=== PATIENT | male | born 1990 | race Caucasian/White ===

== ENCOUNTER 2021-01-04 16:43 | Emergency (ER) | payer OTHER, SELFPAY ==
[2021-01-04 16:59] VITALS: BP 109/79; PULSE 68; RESP 18; TEMP 36.7; O2SAT 98
--- NOTE | 2021-01-04 17:09 | ED.GENADULT ---
HPI - General Adult General Chief complaint: Skin/Abscess/Foreign Body Stated complaint: poison frannie Source: patient Mode of arrival: ambulatory Limitations: no limitations History of Present Illness HPI narrative: 30 y/o male. PMH includes: None reported. Presents to [facility] today with acute complaints of suspected poison frannie located to bilateral lower extremities and left elbow. Pt reports to have been cutting weeds by timber at his home 1 week ago, and has since developed itching and rash to the aforementioned areas. No fevers, myalgias. No facial or oral involvement. No cough, dyspnea, or wheezing. He reports to have been using Calamine lotion at home with subtherapeutic relief. He is without additional acute complaints of illness upon exam. Related Data Allergies Allergy/AdvReac Type Severity Reaction Status Date / Time No Known Allergies Allergy Verified 01/04/21 17:04 Review of Systems Review of Systems: Narrative: CONSTITUTIONAL: Denies fever, chills, sweats. EYES: Denies visual changes, redness, discharge. ENT: Denies rhinorrhea, congestion, sore throat, otalgia. CARDIOVASCULAR: Denies chest pain, palpitations, edema. RESPIRATORY: Denies dyspnea, wheezing, cough GASTROINTESTINAL: Denies abdominal pain, nausea, vomiting, diarrhea. GENITOURINARY: Denies dysuria, hematuria, abnormal discharge SKIN: Positive rash & itching to legs and left elbow. MUSCULOSKELETAL: Denies acute back pain, joint pain, or myalgia. NEUROLOGIC: Denies numbness, or focal weakness. PSYCHIATRIC: Denies anxiety or depression. All systems reviewed & are unremarkable except as noted in HPI and below PMFSH Past Medical History Medical History Healthy adult Surgical History Surgical History S/P hernia surgery Family History Family History Father Family history of hypercholesterolemia Hypertension Grandparent Family history of premature coronary heart disease Cerebrovascular accident Family history of coronary artery disease Family history of seizure disorder Mother Patient's mother is in good health Sibling Patient's sister is in good health Patient's brother is in good health Social History Social History Smoking status: Never smoker Alcohol intake: current Substance use: never Gender identity (if verbalized by the patient): Male Exam Narrative: Exam Narrative: GENERAL: This is a well-nourished, well-developed patient, in no apparent distress. HEAD: normocephalic, atraumatic. EYES: Sclera clear/white. EARS: External ears normal. NOSE: External nose normal with no obvious nasal discharge. THROAT: Mucous membranes moist, posterior pharynx clear. NECK: Neck supple, non-tender without lymphadenopathy, masses or thyromegaly. CARDIOVASCULAR: Regular rate and rhythm without murmurs, gallops, or rubs. RESPIRATORY: Clear to auscultation. Breath sounds equal bilaterally. GASTROINTESTINAL: Abdomen soft, non-tender, nondistended. SKIN: With erythematous and mildly raised scattered rash located to bilateral lower shins and left elbow. There are limited scattered fluid-filled blisters, oozing serosanguineous discharge. Some lesions with honey colored crustation. No deep tissue wounds or fluctuance. NEURO: no obvious focal neurologic abnormalities. Steady gait. Course Vital Signs Vital signs: Vital Signs Temperature 36.7 C 01/04/21 16:59 Pulse Rate 68 01/04/21 16:59 Respiratory Rate 18 01/04/21 16:59 Blood Pressure 109/79 01/04/21 16:59 Pulse Oximetry 98 01/04/21 16:59 Temperature 36.7 C 01/04/21 16:59 Pulse Rate 68 01/04/21 16:59 Respiratory Rate 18 01/04/21 16:59 Blood Pressure 109/79 01/04/21 16:59 Pulse Oximetry 98 01/04/21 16:59 Me
[2021-01-04] MEDS: methylPREDNISolone ACETATE 40 MG/ML VIAL IM (17:21)
== END 2021-01-04 17:25 | disposition home or self-care (01) ==
PROVIDERS: Emergency Provider Nurse Practitioner Adult Health; PCP Family Medicine
DX: L23.7 Allergic contact dermatitis due to plants, except food (principal); L24.9 Irritant contact dermatitis, unspecified cause
CPT/HCPCS: 96372; 99213; G0463; J1030

== ENCOUNTER → 2022-09-05 12:23 | Outpatient (CLI) | payer OTHER, SELFPAY ==
--- NOTE | ~2022-09-05 | MR_ITS ---
EXAMINATION: MR brain/brain stem wo con DATE: 09/05/2022 12:51 INDICATION: New headache. TECHNIQUE: Magnetic resonance imaging (MRI) of the brain and brainstem was performed without intraven ous contrast. COMPARISON: None. FINDINGS: There is no intracranial hemorrhage, acute infarction, or abnormal intracranial mass lesion . The ventricles are normal in size. There is mucosal thickening in the paranasal sinuses. The orbits are normal. The mastoid air cells are normal. IMPRESSION: 1. Normal brain. Reviewed, dictated and finalized at location A. ING SUPERINTENDENT IMPRESSION: 1. Normal brain.
== END ==
PROVIDERS: PCP Family Medicine; Visit Provider Physician Assistant Medical
DX: R51.9 Headache, unspecified (principal)
CPT/HCPCS: 70551

== ENCOUNTER → 2023-08-16 10:12 | Outpatient (CLI) | payer OTHER, SELFPAY ==
--- NOTE | ~2023-08-16 | MR_ITS ---
MRI of the left shoulder Technique: Axial proton-density fat-sat images, coronal proton density fat-sat and T2 fat-sat images, and sagittal T1-weighted and T2 fat-sat images were acquired. Clinical History: Pain Findings: There is [id number] AC joint degenerative change, bony productive change at the dista l clavicle. No significant subacromial spur evident. Coracoclavicular, coracoacromial, and coracohume ral ligaments appear intact. Supraspinatus and infraspinatus tendons are intact, without partial or full-thickness tear. There is probable focal calcific density at the distal supraspinatus tendon measuring approximately 5 mm in si ze, compatible with calcific tendinitis. Subscapularis tendon is intact, without partial or full-thic kness tear. Tendon of long head of the biceps is intact. No labral tear evident. Inferior glenohumeral ligament is intact, possibly mildly thickened. No effusion or degenerative rice ge of the glenohumeral joint. No fluid distention of the subacromial/subdeltoid bursa. No muscle atro phy or edema. Impression: Calcific tendinitis of the distal supraspinatus tendon, as detailed above. [id number] AC joint degenerative change. Reviewed, dictated and finalized at location . CONTROL SPECIALIST Impression: Calcific tendinitis of the distal supraspinatus tendon, as detailed above. [id number] AC joint degenerative change.
== END ==
PROVIDERS: PCP Nurse Practitioner Family; Visit Provider Nurse Practitioner Family
DX: M75.32 Calcific tendinitis of left shoulder (principal); M19.012 Primary osteoarthritis, left shoulder
CPT/HCPCS: 73221

== ENCOUNTER 2025-04-04 10:05 | Emergency (ER) | payer OTHER, SELFPAY ==
--- NOTE | ~2025-04-04 | XR_ITS ---
EXAMINATION: XR chest 2V, 04/04/2025 10:40 CDT HISTORY: cough for 6 days, SOB, sweats 2 days COMPARISON: No comparisons available. Technique: 2 views obtained. Findings: Scattered infiltrates most marked left upper lobe. No pneumothorax. Heart is normal size. Mediastinal and hilar contours are within normal limits. Bony thorax no acute abnormality. Impression: Bilateral pneumonia Reviewed, dictated and finalized at location A. Impression: Bilateral pneumonia
[2025-04-04 10:15] VITALS: BP 120/78; PULSE 71; RESP 16; TEMP 36.6; O2SAT 100
[2025-04-04 10:34] LABS: EDCOVIDSCREEN Negative (Negative)
--- NOTE | 2025-04-04 10:37 | ED_ITS ---
HPI - URI/Sore Throat General Chief Complaint: Upper Respiratory Infection Stated Complaint: Cough / fever Time Seen by Provider: 04/04/25 10:37 Source: patient Mode of arrival: ambulatory Limitations: no limitations History of Present Illness HPI Narrative: 35 yo M presents with c/o cough, chest congestion for 5 days. For the past 2 days as had worsening of cough, fatigue, bodyaches, fever and sweating at night. Denies shortness of breath or chest pain. Taking ibuprofen to treat body aches which she states is helping. Patient states he feels like he is getting worse instead of better. All systems reviewed and negative except as noted above. Related Data Allergies Allergy/AdvReac Type Severity Reaction Status Date / Time No Known Allergies Allergy Verified 04/04/25 10:24 [facility] Past Medical History Medical History (Updated 04/04/25 @ 11:09 by Gabriela Velasco NP) Pain in glenohumeral joint Rotator cuff tear Calcific tendonitis of left shoulder region Left shoulder pain Right shoulder pain Healthy adult Surgical History Surgical History Hx of vasectomy S/P hernia surgery Family History Family History Father Family history of hypercholesterolemia Hypertension Grandparent Family history of premature coronary heart disease Cerebrovascular accident Family history of coronary artery disease Family history of seizure disorder Mother Patient's mother is in good health Sibling Patient's sister is in good health Patient's brother is in good health Social History Social History Smoking status: Never smoker Second hand tobacco smoke exposure: No Alcohol intake: current Alcohol use details: social Substance use: never Substance use type: does not use Lack of Transportation: No Lack of Food: Never True Current Housing: I Have Housing Concerned About Future Housing: No Difficulty Paying Gas/Electric Bills: No Difficulty Paying for Meds: No Currently Unemployed: No Education: Master's Degree or Higher Difficulty w/ Childcare or Family Care: No Living arrangements: with family Gender identity (if verbalized by the patient): Male Sexual Orientation (if Verbalized by the Patient): Straight or Heterosexual Spiritual care concerns: No Agree to blood products: Yes Comments At time of signature, agree with nursing past medical, surgical, social and family history. There is no relevant family history pertinent to the presenting complaint. Exam Narrative: GENERAL: This is a well-nourished, well-developed patient, Patient is pale but no acute distress HEAD: normocephalic, atraumatic. EYES: PERRL. Sclera clear/white. Vision is grossly intact. EARS: External ears normal, auditory canals clear and without drainage, TMs normal without perforation. Hearing grossly intact. NOSE: External nose normal with no obvious nasal discharge, nares without redness, no rhinorrhea. THROAT: Mucous membranes moist, posterior pharynx clear. NECK: Neck supple, non-tender without lymphadenopathy, masses or thyromegaly. CARDIOVASCULAR: Regular rate and rhythm without murmurs, gallops, or rubs. RESPIRATORY: Clear to auscultation. Breath sounds equal bilaterally. No wheezes, rales, or rhonchi. SKIN: warm, Dry, intact with no suspicious lesions or rash, good texture and turgor. NEURO: awake, alert, and oriented to person, place and time. There were no obvious focal neurologic abnormalities. EXTREMITIES: No joint tenderness, effusion, or edema noted. Course Course Level of Care: Express Care Visit Vital Signs Vital signs: Vital Signs Temperature 36.6 C 04/04/25 10:15 Pulse Rate 71 04/04/25 10:15 Respiratory Rate 16 04/04/25 10:15 Blood Pressure 120/78 04/04/25 10:15 Pulse Oximetry 100 04/04/25 10:15 Oxygen Delivery Room Air 04/04/25 10:15 Temperature 36.6 C 04/04/25 10:15 Pulse Rate 71 04/04/25 10:15 Respiratory Rate 16 04/04/25 10:15 Blood Pressure 120/78 04/04/25 10:15 Pulse Oximetry 100 04/04/25 10:15 Oxygen Delivery Room Air 04/04/25 10:15 reviewed MDM - URI/Sore Throat MDM Narrative Medical decision making narrative: discussed x-ray results with patient. Patient has bilateral pneumonia. Will treat with doxycycline. Patient is alert, nontoxic. Oxygen saturation 100% room air. No respiratory distress. Okay for outpatient therapy. Will follow up with his primary care physician as needed. Differential Diagnosis Differential diagnosis: Likely upper respiratory infection, sinusitis, viral infection, bronchitis and other ( Pneumonia) Lab Data Labs: Lab Results 04/04/25 Range/Units 10:30 POC SARS CoV-2 Ag Negative (Negative) Imaging Data My impression: agree with radiologist Radiologist's impression: EXAMINATION: XR chest 2V, 04/04/2025 10:40 CDT HISTORY: cough for 6 days, SOB, sweats 2 days COMPARISON: No comparisons available. Technique: 2 views obtained. Findings: Scattered infiltrates most marked left upper lobe. No pneumothorax. Heart is normal size. Mediastinal and hilar contours are within normal limits. Bony thorax no acute abnormality. Impression: Bilateral pneumonia Discharge Plan Discharge Clinical Impression: Pneumonia Patient Disposition: Home Condition: Stable Instructions: Antibiotic Form, Pneumonia (ED) Additional Instructions: take antibiotic as prescribed until gone. Take Tylenol or ibuprofen every 6-8 hours as needed for fever and body aches. Drink at least 64 oz water a day. Follow-up with your primary care physician if symptoms are not improving. Patient Language: Syriac Prescriptions: New doxycycline hyclate 100 mg tablet 100 mg PO BID 7 Days Qty: 14 0RF Follow-up/Referrals: Amy Madera MD [Primary Care Provider, [facility]] Time of Disposition: 11:10
--- OUTSIDE RECORDS SUMMARY | 2025-04-04 11:21 | XMS_ITS | Clinical Summary ---
Author Organization [facility] Address [address] [place] [address] Phone Care Team Providers Care Container Coordinator Name Role Phone Amy Madera MD Primary Care Provider [phone] Allergies No known active allergies Medications No known medications Active Problems No known active problems Social History Tobacco Use Types Packs/Day Years Used Date Smoking Tobacco: Never Smokeless Tobacco: Never Sex and Gender Information Value Date Recorded Sex Assigned at Not on file Legal Sex Male 7:50 AM CINDER BLOCK [employer]ON Gender Identity Not on file Sexual Orientation Not on file Last Filed Vital Signs Vital Sign Reading Time Taken Comments Blood Pressure 112/82 06/09/2020 8:02 AM CINDER BLOCK MASON Pulse 85 06/09/2020 8:02 AM CINDER BLOCK MASON Temperature 36.6 C (97.8 F) 06/09/2020 8:02 AM CINDER BLOCK MASON Respiratory Rate - - Oxygen Saturation 98% 06/09/2020 8:02 AM CINDER BLOCK [employer]ON Inhaled Oxygen Concentration - - Weight - - Height - - Body Mass Index - - Plan of Treatment Health Maintenance Due Date Last Done Comments Hepatitis C Virus (HCV) Screening 1988 Hepatitis B Immunization (1 of 3 - 19+ 3-dose series) 01/13/2007 Human Papillomavirus (HPV) Immunization (1 - 3-dose SCDM series) 01/13/2015 Influenza Immunization (#1) 2025 03/13/2016 SARS-COV-2 Immunization (2 - season) 2025 05/14/2021 Respiratory Syncytial Virus (RSV) Immunization (Adult) (1 - 1-dose 75+ series) 01/13/2063 DTaP/Tdap/Td Immunization Discontinued 03/13/2016 TdaP Immunization Completed 03/13/2016 Meningococcal Immunization (ACWY) Aged Out No longer eligible based on patient's age to complete this topic Pneumococcal Immunization Combined Aged Out No longer eligible based on patient's age to complete this topic Rotavirus Immunization Aged Out No lo nger eligible based on patient's age to complete this topic Care Teams Container Coordinator Relationship Specialty Start Date End Date Amy Madera MD [address] [place] [address] PCP - General Family Medicine 06/09/20
--- OUTSIDE RECORDS SUMMARY | 2025-04-04 11:21 | XMS_ITS | Clinical Summary ---
Author Organization [facility] Address [address] [place] [address] Phone Care Team Providers Care Microsoft Solutions Architect Name Role Phone Unavailable Primary Care Provider Unavailabl e Allergies Active Allergy Reactions Criticality Noted Date Comments Amoxicillin Hives High 11/06/2012 Clindamycin Hives High 11/06/2012 Medications No known medications Active Problems No known active problems Immunizations Immunization Administration Dates Next Due (ADACEL/BOOSTRIX)(10 YR UP) TDAP VACCINE, 0.5ML, IM 11/06/2012 Family History Medical History Relation Name Comments High Cholesterol Father Hypertension Father Healthy Mother Heart Disease Paternal Grandfather Colon Cancer Neg Hx Diabetes Neg Hx Relation Name Status Comments Father Alive Mother Alive Paternal Grandfather Alive Social History Tobacco Use Types Packs/Day Years Used Date Smoking Tobacco: Never Smokeless Tobacco: Never Alcohol Use Standard Drinks/Week Comments Yes 0 (1 standard drink = 0.6 oz pur e alcohol) socially Sex and Gender Information Value Date Recorded Sex Assigned at Not on file Legal Sex Male 10:57 AM CDT Gender Identity Not on file Sexual Orientation Not on file Occupation Industry Job Start Date Job End Date Not on file Not on file Not on file Not on file Last Filed Vital Signs Vital Sign Reading Time Taken Comments Blood Pressure 120/70 06/04/2013 11:19 AM DIRECTOR SURGICAL Pulse 76 06/04/2013 11:19 AM DIRECTOR SURGICAL Temperature 36.8 C (98.2 F) 06/04/2013 11:19 AM DIRECTOR SURGICAL Respiratory Rate - - Oxygen Saturation 99% 06/04/2013 11:19 AM DIRECTOR SURGICAL Inhaled Oxygen Concentration - - Weight 87.5 kg (193 lb) 06/04/2013 11:19 AM DIRECTOR SURGICAL Height 175.3 cm (5' 9) 06/04/2013 11:19 AM DIRECTOR SURGICAL Body Mass Index 28.5 06/04/2013 11:19 AM DIRECTOR SURGICAL Plan of Treatment Health Maintenance Due Date Last Done Comments HEPATITIS B VACCINES (1 of 3 - 19+ 3-dose series) 12/20 HPV VACCINES (1 - 3-dose SCDM series) 01/13/2015 DTAP/TDAP/TD VACCINES (2 - Td or Tdap) 11/06/2022 INFLUENZA VACCINE (#1) 2025 [facility]
== END 2025-04-04 11:11 | disposition home or self-care (01) ==
PROVIDERS: Emergency Provider Nurse Practitioner Family; PCP Family Medicine
DX: J18.9 Pneumonia, unspecified organism (principal); Z20.822 Contact with and (suspected) exposure to COVID-19
CPT/HCPCS: 71046; 87426; 99213; G0463

== ENCOUNTER 2025-04-27 11:11 | Outpatient (CLI) | payer OTHER, SELFPAY ==
--- NOTE | ~2025-04-27 | XR_ITS ---
Examination: XR chest 2V Clinical History: Pneumonia, unspecified organism; COUGH x1 MONTH Comparison: 04/04/2025 Technique: PA and Lateral Findings: Cardiomediastinal silhouette normal size and configuration. Lungs clear. No acute bony abnormality. IMPRESSION: 1. No acute cardiopulmonary findings. Reviewed, dictated and finalized at location R.
== END 2025-04-27 11:12 | disposition home or self-care (01) ==
DX: J18.9 Pneumonia, unspecified organism (principal)
CPT/HCPCS: 71046

== ENCOUNTER 2025-06-10 14:56 | Emergency (ER) | payer OTHER, SELFPAY ==
--- NOTE | ~2025-06-10 | XR_ITS ---
EXAMINATION: XR chest 2V DATE: 06/10/2025 15:43 INDICATION: Cough. TECHNIQUE: Frontal and lateral views of the chest were obtained. COMPARISON: Chest x-ray dated 04/27/2025. FINDINGS: Heart size is normal. Lungs are clear. Cassidy and mediastinum are normal. IMPRESSION: 1. No acute findings. Reviewed, dictated and finalized at location T. COVERER IMPRESSION: 1. No acute findings.
--- OUTSIDE RECORDS SUMMARY | 2025-06-10 14:59 | XMS_ITS | Clinical Summary ---
Author Organization [facility] Address [address] [place] [address] Phone Care Team Providers Care Apartment House Manager Name Role Phone Unavailable Primary Care Provider [...] Comments Blood Pressure 120/70 06/04/2013 11:19 AM DISTRIBUTOR PUBLICATIONS Pulse 76 06/04/2013 11:19 AM DISTRIBUTOR PUBLICATIONS Temperature 36.8 C (98.2 F) 06/04/2013 11:19 AM DISTRIBUTOR PUBLICATIONS Respiratory Rate - - Oxygen Saturation 99% 06/04/2013 11:19 AM DISTRIBUTOR PUBLICATIONS Inhaled Oxygen Concentration - - Weight 87.5 kg (193 lb) 06/04/2013 11:19 AM DISTRIBUTOR PUBLICATIONS Height 175.3 cm (5' 9) 06/04/2013 11:19 AM DISTRIBUTOR PUBLICATIONS Body Mass Index 28.5 06/04/2013 11:19 AM DISTRIBUTOR PUBLICATIONS Plan of Treatment Health Maintenance Due Date Last Done Comments HEPATITIS B VACCINES (1 of 3 - 19+ 3-dose series) 12/20 HPV VACCINES (1 - 3-dose SCDM series) 01/13/2015 DTAP/TDAP/TD VACCINES (2 - Td or Tdap) 11/06/2022 INFLUENZA VACCINE (#1) 2025 [facility]
--- OUTSIDE RECORDS SUMMARY | 2025-06-10 14:59 | XMS_ITS | Clinical Summary ---
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 Gender Identity Not on file Sexual Orientation Not on file Last Filed Vital Signs Vital Sign Reading Time Taken Comments Blood Pressure 112/82 06/09/2020 8:02 AM GROUNDS MAINTENANCE SUPERVISOR Pulse 85 06/09/2020 8:02 AM GROUNDS MAINTENANCE SUPERVISOR Temperature 36.6 C (97.8 F) 06/09/2020 8:02 AM GROUNDS MAINTENANCE SUPERVISOR Respiratory Rate - - Oxygen Saturation 98% 06/09/2020 8:02 AM GROUNDS MAINTENANCE SUPERVISOR Inhaled Oxygen Concentration - - Weight - - Height - - Body Mass Index - - Plan of Treatment Health Maintenance Due Date Last Done Comments Hepatitis C Virus (HCV) Screening 1988 Varicella Immunization (1 of 2 - 13+ 2-dose series) 01/13/2001 Hepatitis B Immunization (1 of 3 - [...] age to complete this topic Care Teams Color Straining Bag Washer Relationship Specialty Start Date End Date Amy Madera MD [address] [place] [id number] PCP - General Family Medicine 06/09/20
[2025-06-10 15:04] VITALS: BP 125/78; PULSE 72; RESP 16; TEMP 36.3; O2SAT 98
--- NOTE | 2025-06-10 15:38 | ED.URI ---
HPI - URI/Sore Throat General Chief Complaint: Upper Respiratory Infection Stated Complaint: URI Time Seen by Provider: 06/10/25 15:27 Source: patient and RN notes reviewed Mode of arrival: ambulatory Limitations: no limitations History of Present Illness HPI Narrative: 35-year-old male patient presents today complaining of one-week history of productive cough nasal congestion. Denies shortness of breath or fever. No OTC treatment prior to arrival. Patient had pneumonia in March and was treated with doxycycline. Also had pneumonia in April and was treated with Levaquin. Related Data Home Medications ?Medication ?Instructions ?Recorded ?Confirmed ?Last Taken ?Type No Home Medications 06/10/25 06/10/25 Unknown History Allergies Allergy/AdvReac Type Severity Reaction Status Date / Time No Known Allergies Allergy Verified 06/10/25 15:05 [facility] Past Medical History Medical History Pain in glenohumeral joint Rotator cuff tear Calcific tendonitis of left shoulder region Left shoulder pain Right shoulder pain Healthy adult Surgical History Surgical History Hx of vasectomy S/P hernia surgery Family History Family History Father Family history of hypercholesterolemia Hypertension Grandparent Family history of premature coronary heart disease Cerebrovascular accident Family history of coronary artery disease Family history of seizure disorder Mother Patient's mother is in good health Sibling Patient's sister is in good health Patient's brother is in good health Social History Social History Smoking status: Never smoker Second hand tobacco smoke exposure: No Alcohol intake: current Alcohol use details: social Substance use: never Substance use type: does not use Lack of Transportation: No Lack of Food: Never True Current Housing: I Have Housing Concerned About Future Housing: No Difficulty Paying Gas/Electric Bills: No Difficulty Paying for Meds: No Currently Unemployed: No Education: Master's Degree or Higher Difficulty w/ Childcare or Family Care: No Living arrangements: with family Gender identity (if verbalized by the patient): Male Sexual Orientation (if Verbalized by the Patient): Straight or Heterosexual Spiritual care concerns: No Agree to blood products: Yes Comments At time of signature, I have reviewed and agree with nursing past medical, surgical, social and family history unless otherwise noted. Please see nursing chart for further information. There is no relevant family history pertinent to the presenting complaint Exam Narrative: GENERAL: Well-appearing, well-nourished, and in no acute distress. HEAD: Normocephalic, atraumatic. EYES: EOMI. No redness or drainage. Conjunctivae normal. ENT: Mucous membranes pink and moist. Nares clear. No rhinorrhea. TMs normal bilaterally. Throat normal. Uvula midline. NECK: Normal AROM. Supple. No lymphadenopathy. CHEST: No respiratory distress. Clear to auscultation. HEART: Regular rate and rhythm. No murmur appreciated. EXTREMITIES: Normal range of motion. No edema. SKIN: Warm, dry, no rash. Capillary refill normal. Normal skin turgor. NEURO: No focal deficits. Alert and oriented x3. Gait steady. PSYCH: Normal affect. No signs of depression or anxiety. Course Course Level of Care: Express Care Visit Vital Signs Vital signs: Vital Signs Temperature 97.4 F L 06/10/25 15:04 Pulse Rate 72 06/10/25 15:04 Respiratory Rate 16 06/10/25 15:04 Blood Pressure 125/78 06/10/25 15:04 Pulse Oximetry 98 06/10/25 15:04 Oxygen Delivery Room Air 06/10/25 15:04 Temperature 97.4 F L 06/10/25 15:04 Pulse Rate 72 06/10/25 15:04 Respiratory Rate 16 06/10/25 15:04 Blood Pressure 125/78 06/10/25 15:04 Pulse Oximetry 98 06/10/25 15:04 Oxygen Delivery Room Air 06/10/25 15:04 Reviewed MDM - URI/Sore Throat MDM Narrative Medical decision making narrative: 35-year-old male patient presents today complaining of one-week history of productive cough nasal congestion. Denies shortness of breath or fever. No OTC treatment prior to arrival. Patient had pneumonia in March and was treated with doxycycline. Also had pneumonia in April and was treated with Levaquin. Normal physical exam. Chest x-ray negative. Symptoms likely viral in etiology. Discussed [id number] medication use and duration of illness. No prescription medications indicated at this time. Anticipatory guidance given. Patient agrees with plan. Vital signs stable. Differential Diagnosis Differential diagnosis: Likely upper respiratory infection, viral infection, bronchitis and other (pneumonia) Imaging Data Radiologist's impression: ITS Impressions Chest X-Ray 06/10/25 15:48 IMPRESSION: 1. No acute findings. Critical Care Time Critical Care Time Critical Care Time: No Discharge Plan Discharge Clinical Impression: Viral URI with cough Patient Disposition: Home Condition: Stable Instructions: Upper Respiratory Infection (DC) Additional Instructions: Your chest x-ray is normal today. Your symptoms are likely due to a viral illness, which is not treated with antibiotics. Virus symptoms can last for up to 7-10days. Take Tylenol or ibuprofen for pain or fever. Consider a decongestant such as Sudafed or an intranasal steroid such as Flonase to help with your nasal congestion and inflammation. Mucinex can help break up any chest congestion. Cough suppressant such as NyQuil, Delsym, or Robitussin DM can help suppress your cough night. Rest and stay hydrated. Follow up with your PCP in 3-4 days if symptoms are not improving. Go to the ER immediately if you develop shortness of breath, difficulty swallowing, or any other concerning symptoms. Patient Language: Beninese Prescriptions: No Action No Home Medications Follow-up/Referrals: Ed Huffman APRN [Primary Care Provider, [facility]] Time of Disposition: 15:58
== END 2025-06-10 16:06 | disposition home or self-care (01) ==
PROVIDERS: Emergency Provider Nurse Practitioner
DX: J06.9 Acute upper respiratory infection, unspecified (principal); R05.9 Cough, unspecified; Z98.52 Vasectomy status
CPT/HCPCS: 71046; 99213; G0463

== ENCOUNTER 2025-07-16 18:35 | Emergency (ER) | payer OTHER, SELFPAY ==
--- OUTSIDE RECORDS SUMMARY | 2025-07-16 18:37 | XMS_ITS | Clinical Summary ---
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 Gender Identity Not on file Sexual Orientation Not on file Last Filed Vital Signs Vital Sign Reading Time Taken Comments Blood Pressure 112/82 06/09/2020 8:02 AM VAT HOUSE SUPERVISOR Pulse 85 06/09/2020 8:02 AM VAT HOUSE SUPERVISOR Temperature 36.6 C (97.8 F) 06/09/2020 8:02 AM VAT HOUSE SUPERVISOR Respiratory Rate - - Oxygen Saturation 98% 06/09/2020 8:02 AM VAT HOUSE SUPERVISOR Inhaled Oxygen Concentration - - Weight - - Height - - Body Mass Index - - Plan of Treatment Health Maintenance Due Date Last Done Comments Hepatitis C Virus (HCV) Screening 1988 Varicella Immunization (1 of 2 - 13+ 2-dose series) 01/13/2001 Hepatitis B Immunization (1 of 3 - 19+ 3-dose series) 01/13/2007 Influenza Immunization (#1) 2025 03/13/2016 SARS-COV-2 Immunization (2 - 2024- season) 2025 05/14/2021 Respiratory Syncytial Virus (RSV) Immunization (Adult) (1 - 1-dose 75+ series) 01/13/2063 DTaP/Tdap/Td Immunization Discontinued 03/13/2016 TdaP Immunization Completed 03/13/2016 Human Papillomavirus (HPV) Immunization (No Doses Required) Completed Meningococcal Immunization (ACWY) Aged Out No longer eligible based on patient's age to complete this topic Pneumococcal Immunization Combined Aged Out No longer eligible based on patient's age to complete this topic Rotavirus Immunization Aged Out No lo nger eligible based on patient's age to complete this topic Care Teams Electric Meter Inspector Relationship Specialty Start Date End Date Amy Madera MD [address] [place] [address] PCP - General Family Medicine 06/09/20
[2025-07-16 18:39] VITALS: BP 130/73; PULSE 87; RESP 16; TEMP 36.6; O2SAT 96
[2025-07-16] MEDS: TETANUS,DIPHTHERIA,AC PERTUSSIS ADULT (0.5 ML) BOOSTRIX IM (18:52)
--- OUTSIDE RECORDS SUMMARY | 2025-07-16 19:44 | XMS_ITS | Clinical Summary ---
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 Gender Identity Not on file Sexual Orientation Not on file Last Filed Vital Signs Vital Sign Reading Time Taken Comments Blood Pressure 112/82 06/09/2020 8:02 AM INSPECTOR AIR CARRIER Pulse 85 06/09/2020 8:02 AM INSPECTOR AIR CARRIER Temperature 36.6 C (97.8 F) 06/09/2020 8:02 AM INSPECTOR AIR CARRIER Respiratory Rate - - Oxygen Saturation 98% 06/09/2020 8:02 AM INSPECTOR AIR CARRIER Inhaled Oxygen Concentration - - Weight - [...] age to complete this topic Care Teams Poker Supervisor Relationship Specialty Start Date End Date Amy Madera MD [address] [place] [address] PCP - General Family Medicine 06/09/20
--- NOTE | 2025-07-16 20:33 | ED_ITS ---
HPI - Wound/Laceration General Chief Complaint: Wound/Laceration Stated Complaint: thumb lac Time Seen by Provider: 07/16/25 18:47 History of Present Illness HPI narrative: Patient is a 35-year-old male who presents to the ER after sustaining a laceration to his left thumb. He reports he was using a wooden box maker to cut of cardboard when the knife slipped and sliced thumb. Patient is unsure when he last had his tetanus vaccine. He denies any medical history pertinent to this ER visit. Patient denies any decreased range of motion, uncontrolled bleeding, or pain to the base of the thumb. Related Data Home Medications ?Medication ?Instructions ?Recorded ?Confirmed ?Last Taken ?Type No Home Medications 06/10/25 06/10/25 U nknown History Allergies Allergy/AdvReac Type Severity Reaction Status Date / Time No Known Allergies Allergy Verified 07/16/25 18:37 Review of Systems Review of Systems: All systems reviewed & are unremarkable except as noted in HPI and below PMFSH Past Medical History Medical History Pain in glenohumeral joint Rotator cuff tear Calcific tendonitis of left shoulder region Left shoulder pain Right shoulder pain Healthy adult Surgical History Surgical History Hx of vasectomy S/P hernia surgery Family History Family History Father Family history of hypercholesterolemia Hypertension Grandparent Family history of premature coronary heart disease Cerebrovascular accident Family history of coronary artery disease Family history of seizure disorder Mother Patient's mother is in good health Sibling Patient's sister is in good health Patient's brother is in good health Social History Social History Smoking status: Never smoker Second hand tobacco smoke exposure: No Alcohol intake: current Alcohol use details: social Substance use: never Substance use type: does not use Lack of Transportation: No Lack of Food: Never True Current Housing: I Have Housing Concerned About Future Housing: No Difficulty Paying Gas/Electric Bills: No Difficulty Paying for Meds: No Currently Unemployed: No Education: Master's Degree or Higher Difficulty w/ Childcare or Family Care: No Living arrangements: with family Gender identity (if verbalized by the patient): Male Sexual Orientation (if Verbalized by the Patient): Straight or Heterosexual Spiritual care concerns: No Agree to blood products: Yes Exam Narrative: GENERAL: Well appearing, well-nourished, non-toxic, in no acute distress. HEAD: Normocephalic, atraumatic. NECK: Supple. No adenopathy, no masses. RESPIRATORY: Airway patent, respirations nonlabored. Clear to auscultation bilaterally, no rales, rhonchi, wheezing. CARDIOVASCULAR: Regular rate and rhythm without murmurs, rubs, or gallops. Peripheral pulses 2+ and equal bilaterally. ABDOMINAL: Soft, nontender, nondistended, no hepatosplenomegaly. Normoactive BS. MUSCULOSKELETAL: Moves all extremities. Strength/ROM intact without gross deformities. SKIN: Warm, dry, normal color. No rashes. Approximately 1/2 cm linear laceration left thumb, mildly oozing NEURO: A&O X3. Speech clear. Cranial nerves II-XII intact. No ataxic movements. PSYCHIATRIC: Appropriate mood and affect. Normal interaction. Course Vital Signs Vital signs: Vital Signs Temperature 36.6 C 07/16/25 18:39 Pulse Rate 87 07/16/25 18:39 Respiratory Rate 16 07/16/25 18:39 Blood Pressure 130/73 07/16/25 18:39 Pulse Oximetry 96 07/16/25 18:39 Temperature 36.6 C 07/16/25 18:39 Pulse Rate 87 07/16/25 18:39 Respiratory Rate 16 07/16/25 18:39 Blood Pressure 130/73 07/16/25 18:39 Pulse Oximetry 96 07/16/25 18:39 Procedures Laceration Laceration 1: Date: 07/16/25 Time: 20:35 Site: hand Side (If applicable): left Size (cm): 1.5 Description: linear Depth: simple, single layer Local Anesthetic: lidocaine 1% Amount of anesthesia used (mL): 6 Pre-repair: wound explored and irrigated extensively ====== Skin Level ====== Skin layer closed with: nylon Size (cm): 4-0 Number of sutures: 4 Technique: simple, interrupted ====== Subcutaneous Layer ====== ====== Muscle Layer ====== ====== Tendon Layer ====== MDM MDM Narrative Medical decision making narrative: Patient is a 35-year-old male who presents to the ER after sustaining a laceration to his left thumb. He reports he was using a wooden box maker to cut of cardboard when the knife slipped and sliced thumb. Patient is unsure when he last had his tetanus vaccine. He denies any medical history pertinent to this ER visit. Patient denies any decreased range of motion, uncontrolled bleeding, or pain to the base of the thumb. MDM: No other injuries besides left thumb. Patient's tetanus vaccine will be given today. Mild oozing upon my initial evaluation. Wound was soaked in normal saline with Betadine. Lidocaine was used with adequate anesthesia. Laceration was repaired with 4 sutures without complications. Patient was given wound care instructions and advised to follow-up with primary care doctor in 10- 14 days for suture removal. He was given reasons to return to the ED. All questions answered. Vital signs stable at time of discharge. Differential Diagnosis Differential Diagnosis: Laceration, avulsion, abrasion Discharge Plan Discharge Clinical Impression: Laceration Patient Disposition: Home Condition: Stable Instructions: Antibiotic Form, Care For Your Stitches (ED), Laceration (ED) Additional Instructions: Please return to the ER with any worsening symptoms. Follow-up with primary care provider in 10-14 days for suture removal. You may take Tylenol and/or ibuprofen for pain control. Please keep the site clean and covered. You may allow soap and water to run over the site but do not scrub it. Patient Language: Fijian Prescriptions: No Action No Home Medications Follow-up/Referrals: Ed Huffman APRN [Primary Care Provider, [facility]] Time of Disposition: 20:38
[2025-07-16 21:16] VITALS: BP 110/72; PULSE 100; RESP 14; TEMP 36.8; O2SAT 100
== END 2025-07-16 21:18 | disposition home or self-care (01) ==
PROVIDERS: Emergency Provider Registered Nurse
DX: S61.012A Laceration without foreign body of left thumb without damage to nail, initial encounter (principal); Z23 Encounter for immunization; W27.0XXA Contact with workbench tool, initial encounter
CPT/HCPCS: 12001; 90471; 90715; 99282; J2003